=== PATIENT | male | born 1950 | race Caucasian/White ===

== ENCOUNTER → 2017-04-08 | Outpatient (CLI) | payer BC ==
[2014-03-29 15:05] VITALS: BP 111/69
[~2017-04-08] MED LIST: ACET500T33 PO; ALLO300T PO; ASPI325T4 PO; ASPI81TA2 PO; ATOR20TA58 PO; CELE200C PO; DUTA0.5C PO; METF500T4 PO; METO25TA4 PO; MULT-245 PO; NITR0.4T6 SL; OMEG1CAP6 PO; OMEP20CA9 PO; OSTEO BI-FLEX1 EAC1 PO; OXYC-244 PO; SENN1TAB21 PO; TAMS0.4C2 PO; TYLENOL ARTHRITIS; VALS160T3 PO; VALS320T2 PO; VITA1TAB31 PO; WARF-78 PO
== END | disposition home or self-care (01) ==
LOC: LAB 10:35
PROVIDERS: ATTEND Internal Medicine Cardiovascular Disease
DX: E78.5 Hyperlipidemia, unspecified (principal)
CPT/HCPCS: 36415; 80061

== ENCOUNTER → 2017-04-20 | Outpatient (CLI) | payer BC ==
[2014-03-29 15:05] VITALS: BP 111/69
--- NOTE | 2017-04-20 12:04 | KCIC ---
Left Rib series with PA and lateral chest Indication: Left chest pain Comparison: None Findings: There is no displaced rib fracture identified. There is no hemothorax or pneumothorax. Heart size is normal. Pulmonary vasculature is within normal limits. No evidence for consolidating infiltrate. Impression: No evidence for displaced rib fracture, hemothorax, or pneumothorax. Electronically signed by: Trung Christianson MD (04/20/2017 12:01 PM)
== END | disposition home or self-care (01) ==
LOC: KCIC 11:33
PROVIDERS: ATTEND Internal Medicine
DX: R07.89 Other chest pain (principal)
CPT/HCPCS: 71020; 71100

== ENCOUNTER 2017-07-26 14:03 | Observation (INO) | payer MEDICARE ==
[~2017-07-26] VITALS: Ht 172.7 cm; Wt 87.3 kg
[~2017-07-26 14:03] MED LIST changes: +ASPI-630 PO; -ASPI325T4 PO; +ASPI325T8 PO; -ASPI81TA2 PO; +NITR0.4T22 SL; -NITR0.4T6 SL; -OXYC-244 PO; +OXYC-327 PO
[2017-07-26] MEDS ORDERED: DEXTROSE 50% 25 GM / 50ML DISP.SYRIN. IV PRN (15:30)
[2017-07-26] MEDS ORDERED: ACET325T9 PO (16:11)
[2017-07-26] MEDS ORDERED: AMLO5TAB2 PO (16:12)
[2017-07-26] MEDS ORDERED: FINA5TAB4 PO (16:12)
[2017-07-26] MEDS ORDERED: OMEP40CA5 PO (16:13)
[2017-07-26] MEDS ORDERED: GABA600T2 PO (16:15)
[2017-07-26] MEDS ORDERED: CHOL10003 PO (16:15)
[2017-07-26 16:43] LABS: BASO % 0 % (0-3); EOS % 5 % (0-3); HEMATOCRIT 43.1 % (39.0-53.0); HEMOGLOBIN 14.7 g/dL (13.0-17.5); LYMPH # 3.4 x10^3/uL (1.0-4.8); LYMPH % 39 % (24-48); MEAN CORPUSCULAR HEMOGLOBIN 31 pg (25-35); MEAN CORPUSCULAR HGB CONC 34 g/dL (31-37); MEAN CORPUSCULAR VOLUME 89 fL (79-100); MONO % 7 % (0-9); NEUT % 48 % (31-73); PLATELET COUNT 222 x10^3/uL (140-400); RED BLOOD COUNT 4.83 x10^6/uL (4.30-5.70); WHITE BLOOD COUNT 8.7 x10^3/uL (4.0-11.0)
[2017-07-26] MEDS ORDERED: NITROGLYCERIN SUBLINGUAL 0.4 MG BOTTLE OF 25. SL PRN (17:30)
[2017-07-26 17:32] VITALS: BP 144/88
[2017-07-26] MEDS ORDERED: amLODIPine BESYLATE 5 MG TABLET PO SCH (18:00)
[2017-07-26] MEDS ORDERED: TAMSULOSIN 0.4 MG CAP.ER.24H. PO SCH (18:00)
[2017-07-26] MEDS ORDERED: metFORMIN 500 MG TABLET PO SCH (18:00)
[2017-07-26] MEDS ORDERED: CHOLECALCIFEROL (VITAMIN D3) 1,000 UNIT TABLET PO SCH (18:00)
--- NOTE | 2017-07-26 18:00 | EKG ---
[facility] [address] [place] [address] Test Date: 2017-07-26 Test Time: 17:50:44 Pat Name: HARRY MONAE Department: Room: 206 1 Gender: M Incident Analyst: JOSEP : 1950 Requested By: ASHKAN RAHMAN Order Number: [id number] Reading MD: Measurements Intervals [place] Rate: 42 P: 47 UT: 190 QRS: -2 QRSD: 94 T: 95 QT: 444 QTc: 373 Interpretive Statements SINUS BRADYCARDIA LEFTWARD AXIS T ABNORMALITY IN HIGH LATERAL LEADS ABNORMAL ECG RI6.01 Compared to ECG 12/14/2013 15:49:01 Left-axis deviation now present T-wave abnormality now present Sinus tachycardia no longer present
[2017-07-26] MEDS ORDERED: OMEG1CAP6 PO (18:18)
[2017-07-26] MEDS ORDERED: EZET10TA18 PO ×2 (18:20→18:22)
[2017-07-26 18:24] LABS: ALBUMIN 4.1 g/dL (3.4-5.0); ALBUMIN/GLOBULIN RATIO 1.2 (1.0-1.7); CALCIUM 9.4 mg/dL (8.5-10.1); CREATININE 0.9 mg/dL (0.7-1.3); POTASSIUM 3.9 mmol/L (3.5-5.1); TOTAL BILIRUBIN 0.5 mg/dL (0.2-1.0); TOTAL PROTEIN 7.6 g/dL (6.4-8.2)
[2017-07-26] MEDS ORDERED: OMEGA-3 FATTY ACIDS/FISH OIL 1,000 MG CAPSULE. PO SCH (18:30)
[2017-07-26] MEDS ORDERED: EZETIMIBE 10 MG TABLET. PO SCH ×2 (18:30→19:00)
[2017-07-26] MEDS: ASPIRIN CHEWABLE 81 MG TABLET. PO SCH (18:33)
[2017-07-26 18:36] LABS: CKMB MASS 1.5 ng/mL (0.0-3.6)
[2017-07-26 19:30] VITALS: BP 142/88
[2017-07-26] MEDS ORDERED: ACETAMINOPHEN 325 MG TABLET. PO SCH (21:00)
[2017-07-26] MEDS ORDERED: METOPROLOL TART IMMED RELEASE 25 MG TABLET. PO SCH (21:00)
[2017-07-26] MEDS: GABAPENTIN 300 MG CAPSULE. PO SCH (21:52)
[2017-07-26 23:05] VITALS: BP 148/90
[2017-07-27 03:35] VITALS: BP 120/70
[2017-07-27 06:57] LABS: CHOLESTEROL/HDL RATIO 3.3
[2017-07-27] MEDS ORDERED: SENNOSIDES/DOCUSATE 8.6/50MG TABLET. PO SCH ×2 (07:00→08:00)
[2017-07-27] MEDS ORDERED: MULTIVITAMIN with MINERAL TABLET. PO SCH ×2 (07:00→08:00)
[2017-07-27] MEDS ORDERED: ALLOPURINOL 300 MG TABLET. PO SCH ×2 (07:00→08:00)
[2017-07-27] MEDS ORDERED: LOSARTAN POTASSIUM 50 MG TABLET. PO SCH ×2 (07:00→08:00)
[2017-07-27] MEDS ORDERED: [UNRECOGNIZED DRUG - OTHER] PO SCH (07:00)
[2017-07-27 07:15] VITALS: BP 147/82
[2017-07-27] MEDS ORDERED: PANTOPRAZOLE 40 MG TABLET.DR. PO SCH (07:30)
--- NOTE | 2017-07-27 07:59 | RAD ---
Portable chest, 07/26/2017: History: Chest pain Comparison is made to a study from 05/04/2014. There has been a previous median sternotomy. The heart size and pulmonary vascularity are normal. The lungs are clear. There is no evidence of pleural fluid. IMPRESSION: No acute cardiopulmonary abnormality is detected.
[2017-07-27] MEDS ORDERED: metFORMIN 500 MG TABLET PO SCH (08:00)
--- NOTE | 2017-07-27 08:47 | CARD ---
APPROVED REPORT EXAM: Two-dimensional and M-mode echocardiogram with Doppler and color Doppler. Other Information Quality : GoodHR: 45bpm Rhythm : Bradycardia INDICATION Chest Pain 2D DIMENSIONS RVDd3.8 (2.9-3.5cm)Left Atrium(2D)4.5 (1.6-4.0cm) IVSd1.0 (0.7-1.1cm)Aortic Root(2D)3.3 (2.0-3.7cm) LVDd4.9 (3.9-5.9cm)LVOT Diameter2.3 (1.8-2.4cm) PWd1.0 (0.7-1.1cm)LVDs3.3 (2.5-4.0cm) FS (%) 32.4 %SV69.8 ml LVEF(%)60.4 (>50%) Aortic Valve AoV Peak Pardeep.107.9cm/sAoV VTI27.9cm AO Peak GR.4.7mmHgLVOT Peak Pardeep.85.8cm/s AO Mean GR.3mmHgAVA (VMAX)3.22cm2 Mitral Valve MV E Yquapmjj15.5cm/sMV E Peak Gr.4mmHg MV DECEL [id number] A Tnqhhnxi84.3cm/s MV E Mean Gr.1mmHgE/A Ratio1.2 MV A [id number] Pulmonary Valve PV Peak Mwxidocu986.7cm/s Pulmonary Vein S1 Syuwfbqk02.5cm/sD2 Cxwpxnyr62.4cm/s PVa [id number] LEFT VENTRICLE The left ventricle is normal size. There is normal left ventricular wall thickness. The left ventricu lar systolic function is normal. The Ejection Fraction is 55-60%. There is normal LV segmental wall m otion. The left ventricular diastolic function and filling is normal for age. RIGHT VENTRICLE The right ventricle is normal size. There is normal right ventricular wall thickness. The right ventr icular systolic function is normal. ATRIA The left atrium size is normal. The right atrium size is normal. The interatrial septum is intact wit h no evidence for an atrial septal defect or patent foramen ovale as noted on 2-D or Doppler imaging. AORTIC VALVE The aortic valve is mildly thickened. The aortic valve is trileaflet. Doppler and Color Flow revealed no significant aortic regurgitation. There is no significant aortic valvular stenosis. MITRAL VALVE The mitral valve leaflets are mildly thickened. There is no evidence of mitral valve prolapse. There is no mitral valve stenosis. Doppler and Color Flow revealed trace mitral regurgitation. TRICUSPID VALVE Doppler and Color Flow revealed trace tricuspid regurgitation. The pulmonary artery systolic pressure is estimated at 25 mmHg. There is no pulmonary hypertension. PULMONIC VALVE The pulmonic valve is not well visualized but appears to open adequately. Doppler and Color Flow reve aled mild pulmonic valvular regurgitation. There is no pulmonic valvular stenosis by spectral Doppler . GREAT VESSELS The aortic root is normal in size. The ascending aorta is normal in size. The pulmonary artery is nor mal. The IVC is normal in size and collapses >50% with inspiration. PERICARDIAL EFFUSION There is no evidence of significant pericardial effusion. Critical Notification Critical Value: No <Conclusion> The left ventricular systolic function is normal. The Ejection Fraction is 55-60%. There is normal LV segmental wall motion. Trace mitral regurgitation. Trace tricuspid regurgitation. The pulmonary artery systolic pressure is estimated at 25 mmHg. There is no evidence of significant pericardial effusion.
[2017-07-27] MEDS ORDERED: FINASTERIDE 5 MG TABLET. PO SCH (09:00)
[2017-07-27] MEDS ORDERED: ASPIRIN CHEWABLE 81 MG TABLET. PO SCH (09:00)
--- NOTE | 2017-07-27 09:35 | PDOC2 ---
OCTAVIO LAWTON RAIL FILLER 07/27/17 0935: CARDIAC CONSULT DATE OF CONSULT Date of Consult DATE: 07/27/17 TIME: 09:24 REASON FOR CONSULT Reason for Consult: Chest Pain REFERRING PHYSICIAN Referring Physician: Dr. Hensley SOURCE Source: Chart review, Patient HISTORY OF PRESENT ILLNESS HISTORY OF PRESENT ILLNESS This is a 66 yo male who presented as a direct admit from Dr. Hensley's office with complaints of chest pain. Patient reports have reunion on Wednesday and eating foods that "didn't agree with me." Developed "indigestion" Wednesday. Persisted throughout the day and on into Wednesday. Had appointment with PCP Wednesday. Given chest pain and cardiac history, conducted EKG which reportedly had changes from previous study in 2013. Was admitted to the hospital for further workup and treatment. Patient describes the pain as burning in nature. Located in his central chest. Temporarily improved with drinking fluids. No relief with nitro X1. Denies any associated dizziness, diaphoresis, palpitations, SOA, or nausea/vomiting. Pain very different from what he previously experienced in 2013 with IN. Pain no longer present this morning. Does have a history of GERD and has been complaint with omeprazole. Troponin series normal- AMI ruled out. EKG shows SB with mild changes of t-wave inversion of V2 and flattening of V3-5 in comparison to study conducted . Otherwise, no significant acute changes. Echo revealed normal LV function with no WMA. Discussed echo findings, along with suspicion that pain is GI in nature, and potential for discharge home later today with consideration of outpatient ischemic workup if symptoms persisted. Patient would like to proceed with stress test this morning to r/o ischemic etiology. PAST MEDICAL HISTORY Cardiovascular: CAD, HTN, Hyperlipidemia Pulmonary: No pertinent hx GI: GERD Heme/Onc: No pertinent hx Hepatobiliary: No pertinent hx Psych: No pertinent hx Rheumatologic: Gout Infectious disease: No pertinent hx ENT: No pertinent hx Renal/: Benign prostatic enlarg. Endocrine: No pertinent hx Dermatology: No pertinent hx PAST SURGICAL HISTORY Past Surgical History: Appendectomy, CABG (x4 with ARGUETA to LAD, radial to diag. , SVG to OM, and SVG to RCA 11/2013), Other (sinus surgery, carpal tunnel release ) FAMILY HISTORY Family History: Coronary Artery Disease, Kidney Disease SOCIAL HISTORY Smoke: No ALCOHOL: none Drugs: None Lives: with Family CURRENT MEDICATIONS CURRENT MEDICATIONS Current Medications Medications (Trade) Dose Ordered Sig/Parris Route PRN Reason Start Time Stop Time Status Last Admin Dose Admin Acetaminophen (Tylenol) 650 mg BID PO 07/26/17 21:00 07/26/17 21:53 Amlodipine Besylate (Norvasc) 5 mg DAILYWSUP PO 07/26/17 18:00 07/26/17 18:14 Vitamin D (Vitamin D3) 1,000 unit DAILYWSUP PO 07/26/17 18:00 07/26/17 18:15 Metformin HCl (Glucophage) 500 mg BID76 PO 07/26/17 18:00 07/27/17 01:46 DC 07/26/17 18:10 Tamsulosin HCl (Flomax) 0.4 mg DAILYWSUP PO 07/26/17 18:00 07/26/17 18:10 Gabapentin (Neurontin) 600 mg BID PO 07/26/17 21:00 07/26/17 21:52 Fish Oil (Fish Oil) 1,000 mg DAILYWSUP PO 07/26/17 18:30 07/26/17 18:32 EZETIMIBE (Zetia) 10 mg DAILYWSUP PO 07/26/17 18:30 07/26/17 18:33 Aspirin (Children'S Aspirin) 81 mg DAILY PO 07/26/17 18:30 07/26/17 18:33 ALLERGIES ALLERGIES: Coded Allergies: ibuprofen (Verified Allergy, Severe, .ELEVATED BLOOD PRESSURE AND ITCHING , 03/28/14) ROS Review of System 14 point ROS conducted with pertinent positives noted above in HPI. PHYSICAL EXAM General: Alert, Oriented X3, Cooperative, No acute distress HEENT: Atraumatic, Mucous membr. moist/pink Lungs: Clear to auscultation, Normal air movement Heart: Regular rate, Normal S1, Normal S2, No murmurs Abdomen: Soft, No tenderness Extremities: No edema, Normal pulses Skin: No breakdown, No significant lesion Neuro: Normal speech, Sensation intact Psych/Mental Status: Mental status NL, Mood NL MUSCULOSKELETAL: No joint tenderness VITALS VITALS Vital Signs Date Time Temp Pulse Resp B/P (MAP) Pulse Ox O2 Delivery O2 Flow Rate FiO2 07/27/17 07:15 97.8 51 14 147/82 (103) 92 Room Air 97.8 LABS Lab: Laboratory Tests Test 07/26/17 15:35 07/26/17 17:13 07/26/17 17:50 07/26/17 20:55 White Blood Count 8.7 x10^3/uL (4.0-11.0) Red Blood Count 4.83 x10^6/uL (4.30-5.70) Hemoglobin 14.7 g/dL (13.0-17.5) Hematocrit 43.1 % (39.0-53.0) Mean Corpuscular Volume 89 fL (79-100) Mean Corpuscular Hemoglobin 31 pg (25-35) Mean Corpuscular Hemoglobin Concent 34 g/dL (31-37) Red Cell Distribution Width 14.0 % (11.5-14.5) Platelet Count 222 x10^3/uL (140-400) Neutrophils (%) (Auto) 48 % (31-73) Lymphocytes (%) (Auto) 39 % (24-48) Monocytes (%) (Auto) 7 % (0-9) Eosinophils (%) (Auto) 5 % (0-3) Basophils (%) (Auto) 0 % (0-3) Neutrophils # (Auto) 4.2 x10^3uL (1.8-7.7) Lymphocytes # (Auto) 3.4 x10^3/uL (1.0-4.8) Monocytes # (Auto) 0.6 x10^3/uL (0.0-1.1) Eosinophils # (Auto) 0.5 x10^3/uL (0.0-0.7) Basophils # (Auto) 0.0 x10^3/uL (0.0-0.2) Glucose (Fingerstick) 81 mg/dL (70-99) 123 mg/dL (70-99) Sodium Level 140 mmol/L (136-145) Potassium Level 3.9 mmol/L (3.5-5.1) Chloride Level 103 mmol/L (98-107) Carbon Dioxide Level 31 mmol/L (21-32) Anion Gap 6 (6-14) Blood Urea Nitrogen 17 mg/dL (8-26) Creatinine 0.9 mg/dL (0.7-1.3) Estimated GFR (Cockcroft-Gault) 85.0 BUN/Creatinine Ratio 19 (6-20) Glucose Level 88 mg/dL (70-99) Calcium Level 9.4 mg/dL (8.5-10.1) Total Bilirubin 0.5 mg/dL (0.2-1.0) Aspartate Amino Transf (AST/SGOT) 18 U/L (15-37) Alanine Aminotransferase (ALT/SGPT) 31 U/L (16-63) Alkaline Phosphatase 83 U/L (46-116) Creatine Kinase 75 U/L (39-308) Creatine Kinase MB (Mass) 1.5 ng/mL (0.0-3.6) Creatine Kinase MB Relative Index 2.0 % (0-4) Troponin I Quantitative 0.019 ng/mL (0.000-0.055) Total Protein 7.6 g/dL (6.4-8.2) Albumin 4.1 g/dL (3.4-5.0) Albumin/Globulin Ratio 1.2 (1.0-1.7) Test 07/26/17 23:25 07/27/17 05:53 07/27/17 07:43 Troponin I Quantitative < 0.017 ng/mL (0.000-0.055) 0.019 ng/mL (0.000-0.055) Triglycerides Level 115 mg/dL (0-150) Cholesterol Level 146 mg/dL (0-200) LDL Cholesterol, Calculated 79 mg/dL (0-100) VLDL Cholesterol, Calculated 23 mg/dL (0-40) Non-HDL Cholesterol Calculated 102 mg/dL (0-129) HDL Cholesterol 44 mg/dL (40-60) Cholesterol/HDL Ratio 3.3 Glucose (Fingerstick) 113 mg/dL (70-99) ECHOCARDIOGRAM ECHOCARDIOGRAM <Conclusion> The left ventricular systolic function is normal. The Ejection Fraction is 55-60%. There is normal LV segmental wall motion. Trace mitral regurgitation. Trace tricuspid regurgitation. The pulmonary artery systolic pressure is estimated at 25 mmHg. There is no evidence of significant pericardial effusion. DATE: 07/27/17 0847 HEART CATH HEART CATH Conclusion 1. Three-vessel coronary artery disease 2. Normal left ventricular systolic function with ejection fraction estimated at 60%. 3. No mitral regurgitation. No aortic stenosis. Recommendations Coronary artery bypass surgery. DATE: 12/13/13 1214 ASSESSMENT/PLAN ASSESSMENT/PLAN 1. Chest pain; atypical and most probably GI in nature. troponin series normal - AMI ruled out 2. CAD s/p CABG 2013. Clinically stable. Continue secondary prevention measures. 3. Hypertension; controlled with meds 4. Hyperlipidemia; LDL 79. statin therapy 5. GERD; PPI Recommendations Pain likely GI in nature, but given risk factors will proceed with stress test to r/o ischemia. If no evidence of ischemia, may discharge from a CV standpoint and f/u in our office with Dr. Hines in 4-6 weeks. Problems: SHYANN HINES MD 07/27/17 1422: CARDIAC CONSULT ALLERGIES ALLERGIES: Coded Allergies: ibuprofen (Verified Allergy, Severe, .ELEVATED BLOOD PRESSURE AND ITCHING , 03/28/14) ASSESSMENT/PLAN ASSESSMENT/PLAN Patient seen and examined. Agree with PIANO AND ORGAN REFINISHER's assessment and plan Chest pain with atypical features and most probably GI etiology. 2-D echo showed normal LV function and Lexiscan nuclear stress test did not show any significant ischemia. CAD status clinically stable. Continue current medical regimen. Follow-up with our office in 1 month. Problems: OCTAVIO LAWTON APRN Jul 27, 2017 09:35 SHYANN HINES MD Jul 27, 2017 14:22
[2017-07-27] MEDS ORDERED: METOPROLOL TART IMMED RELEASE 25 MG TABLET. PO SCH (10:00)
--- NOTE | 2017-07-27 10:01 | PDOC ---
Provider Note Provider Note history and physical dictated # [id number] ASHKAN RAHMAN MD Jul 27, 2017 10:01
[2017-07-27] MEDS ORDERED: REGADENOSON 0.4 MG/5 ML DISP.SYRIN. IV ONE (10:45)
--- NOTE | 2017-07-27 10:56 | HP ---
ADMIT DATE: 07/27/2017 LOCATION: Room 206. HISTORY OF PRESENT ILLNESS: The patient is a 66-year-old white male with a history of coronary artery disease and coronary artery bypass graft surgery who has gastroesophageal reflux disease, diabetes mellitus type 2, hypertension, hyperlipidemia, obstructive sleep apnea treated with CPAP, who was seen in the office on 07/26/2017 with a 2-day history of retrosternal chest discomfort described as a burning. He had some discomfort in the right upper extremity. He took a sublingual nitroglycerin at home, which did not help and did not take any antacids. He does take omeprazole 40 mg every day. Denied any exertional chest discomfort. He said it did not feel like his angina in the past; however, it was persisting although less intense than it was the day before. EKG in the office showed some T-wave inversion in leads I, aVL, V5 and V6, which was new since comparison to an EKG in 2013. This prompted admission to the hospital. The patient denies any further chest pain since admission. ALLERGIES AND INTOLERANCES: To IBUPROFEN as well as NAPROXEN, HYDROCODONE, LISINOPRIL and FELODIPINE. MEDICATIONS PRIOR TO ADMISSION: Include allopurinol 300 mg every day, amlodipine 5 mg every day, aspirin 81 mg every day, finasteride 5 mg every day, fish oil 1 g daily, gabapentin 600 mg b.i.d., metformin 500 mg b.i.d., metoprolol tartrate 12.5 mg b.i.d., multiple vitamin once a day, nitroglycerin 0.4 mg sublingual p.r.n., omeprazole 40 mg every day, , tramadol 50 mg every 6 hours p.r.n., valsartan 160 mg every day and Zetia 10 mg every day. PAST MEDICAL HISTORY: Significant for diabetes mellitus type 2 with diabetic peripheral neuropathy, microalbuminuria. He also has a history of hyperlipidemia, coronary artery disease with 4-vessel coronary bypass graft surgery. Benign prostatic hypertrophy, obstructive sleep apnea treated with CPAP, gynecomastia in the past and he had a right breast biopsy for that. He has a history of gastroesophageal reflux disease. An upper GI bleed due to esophageal ulcers secondary to nonsteroidal anti-inflammatory drug in 2001 and he has a history of obstructive sleep apnea, treated with CPAP. He has osteoarthritis. He had a right total knee arthroplasty in 2014, left trigger thumb release, sinus surgery, appendectomy, carpal tunnel release and a 4-vessel coronary artery bypass graft surgery in 2014. SOCIAL HISTORY: He does not drink alcohol nor does he smoke cigarettes. He is retired. FAMILY HISTORY: Brother had a myocardial infarction and mother and brother had pancreatic cancer. Mother had diabetes mellitus. REVIEW OF SYSTEMS: GENERAL: There has been no fever, chills or sweats in the last few days. CARDIOVASCULAR: No chest pain. PULMONARY: No cough or shortness of breath. GASTROINTESTINAL: No constipation. SKIN: No rashes. NEUROLOGIC: No focal weakness. ENDOCRINE: He has diabetes mellitus. The rest of systems reviewed are negative except as stated in history of present illness. PHYSICAL EXAMINATION: VITAL SIGNS: Temperature is 97.8 degrees, apical pulse is 52 and regular, respiratory rate is 18, blood pressure 147/82, oxygen saturation 92% on room air. HEENT: Eyes: Gaze is conjugate. Mouth: Tongue is midline. NECK: There is no cervical lymphadenopathy or thyroid enlargement. HEART: Reveals an S1, S2. There is no S3 or murmur. LUNGS: Clear. ABDOMEN: Soft with no hepatosplenomegaly, masses or tenderness. EXTREMITIES: Lower extremities without edema. SKIN: No rashes. He had a red skin. He does have a little red spot on the left anterior calf which he had before, which appears to be small than it was yesterday. NEUROLOGIC: Revealed that it was coherent with no focal weakness in arms or legs. REVIEW OF TEST RESULTS: His white count was 8.7, hemoglobin 14.7, platelet count 222,000, 48 polys and 39 lymphocytes. His sodium is 140, potassium 3.9, chloride 103, total CO2 31, BUN 17, creatinine 0.9, blood sugar 88. Liver function tests normal. Albumin 4.1 and the troponin level was negative x 3. Cholesterol level 146, triglycerides 115, LDL 79, HDL was 44. Chest x-ray showed no acute abnormality. Electrocardiogram, which showed sinus bradycardia, nonspecific ST-T wave changes and Q-waves in leads III and aVF. He had an echocardiogram also done which showed a preserved left ventricular ejection fraction 55% to 60% with normal left ventricular wall motion. He had trace mitral regurgitation, trace tricuspid regurgitation, pulmonary artery systolic pressure was 25. There is no significant pericardial effusion. ASSESSMENT: 1. Chest pain. 2. Coronary artery disease with previous coronary artery bypass graft surgery. 3. Gastroesophageal reflux disease and some sinus bradycardia. 4. Hypertension. 5. Obstructive sleep apnea. 6. Diabetes mellitus type 2. 7. Hyperlipidemia. PLAN: At this time is to consult Cardiology. We will see if they want to proceed with a stress test or not. We will continue with his current medications. We will continue with the aspirin for his coronary artery disease, amlodipine and valsartan, which has been substituted with losartan for his hypertension. Continue the metformin for the diabetes and Zetia for his hyperlipidemia. Continue the allopurinol for his history of gout. We will decrease the metoprolol 12.5 mg everyday and hold if the heart rate is less than 60. ASHKAN RAHMAN MD DR: TOM/nuno JOB#: [id number] / [id number]
[2017-07-27 11:07] VITALS: BP 128/84
[2017-07-27] MEDS ORDERED: ACETAMINOPHEN 325 MG TABLET. PO PRN (12:00)
[2017-07-27] MEDS: GABAPENTIN 300 MG CAPSULE. PO SCH (12:24)
[2017-07-27] MEDS: ASPIRIN CHEWABLE 81 MG TABLET. PO SCH (12:25)
--- NOTE | 2017-07-27 14:10 | RAD ---
APPROVED REPORT Test Type: Pharmacological Stress Nurse/Tech: Mounika Del Cid R.N. Test Indications: Chest pain, indigestion. Cardiac History: CABGx4 2013, HTN Medications: SEE EMR Medical History: SEE EMR Resting ECG: SB Resting Heart Rate: 51 bpm Resting Blood Pressure: 127/76mmHg Pretest Chest Pain: None Nurse/Tech Notes S1S2, lungs CTA, denied chest pain or SOA. Pt states he believes he is having episodes of indigestion . Consent: The procedure was explained to the patient in lay terms. Informed consent was witnessed. Alfonso eout was entered into [employer]. History and Stress Test performed by Mounika Del Cid R.N. Pharm. Details Pharmacologic stress testing was performed using 0.4mg per 5ml of regadenoson given intravenously ove r 7-10 seconds. Stress Symptoms Nausea, SOA. POST EXERCISE Reason for Termination: Infusion complete Max HR: 85 bpm Max Blood Pressure: 132/76mmHg Blood Pressure response to exercise: Normal blood pressure response during stress. Heart Rate response to exercise: Normal Chest Pain: No. Arrhythmia: No. ST Change: No. INTERPRETATION Stress EKG Conclusion: No acute changes were noted. Imaging Protocol IMAGE PROTOCOL: Rest Tc-99m/stress Tc-99m 1 day Rest: Stress: Viability: Radiopharm.Tc99m KxtazzqimRn55n Sestamibi Dose10.5mCi 32mCi Duration 15min. 12min. Img Date 07/27/2017 07/27/2017 Inj-Img Axzp30noh. 60min. Rest Admin Site:IV - Right HandAdministrator:RT Megan (R)(N) Stress Admin Site: IV - Right HandAdministrator: GEORGI Koenig STRESS DATA End Diast. Vol.110.0mlAv. Heart Rate53.0bpm End Syst. Vol.50.0mlCO Index BSA0.0L/min Myocardial Pvvy399.0gEject. Amosuewi64.0% Stress Rates Pk. Fill Rate1.81EDV/secLVtime Pk. Fill 228.43msec Pk. Empty Rate2.60ESV/secLVtime Pk. Npjul076.26msec 11/17 Pk. Fill0.92EDV/sec Stress Scores Regional WT2.00Summed WT9.00 Regional WM0.00Summed WM9.00 The rest and stress images show normal perfusion, normal contraction and thickening. LV Perf. Quant 17 Seg. SSS3.00 17 Seg. SRS0.00 17 Seg. SDS3.00 Stress Defect Extent (% LAD)0.00Rest Defect Extent (% LAD)0.00Rev. Defect Extent (% LAD)0.00 Stress Defect Extent (% LCX) 27.50Rest Defect Extent (% LCX)11.30Rev. Defect Extent (% LCX)12.50 Stress Defect Extent (% RCA)0.00Rest Defect Extent (% RCA)0.00Rev. Defect Extent (% RCA)0.00 Stress Defect Extent (% STEPHANIE)7.40Rest Defect Extent (% STEPHANIE)2.00Rev. Defect Extent (% STEPHANIE)4.80 Other Information Risk Assessment: Low Risk Conclusion 1. No evidence of EKG changes with stress testing. 2. Normal perfusion at stress/rest. 3. Low risk study. 4. EF 55%.
[2017-07-27 15:00] VITALS: BP 125/77
--- NOTE | 2017-07-29 11:25 | PDOC ---
Provider Note Provider Note discharge summary dictated # [id number] ASHKAN RAHMAN MD Jul 29, 2017 11:25
--- NOTE | 2017-07-29 12:08 | DS ---
DATE OF DISCHARGE: 07/27/2017 DATE OF ADMISSION: 07/26/2017 DATE OF DISCHARGE: 07/27/2017 COMMUNITY ENGAGEMENT LEADER: Dr. Zhu. FINAL DIAGNOSES: 1. Chest pain secondary to gastroesophageal reflux disease and suspected esophageal spasm. 2. Coronary artery disease with previous coronary bypass graft surgery. 3. Sinus bradycardia. 4. Gastroesophageal reflux disease. 5. Hypertension. 6. Diabetes mellitus type 2. 7. Hyperlipidemia. 8. Obstructive sleep apnea. HOSPITAL COURSE: The patient is a 66-year-old white male with history of coronary artery disease and previous coronary bypass graft surgery who has gastroesophageal reflux disease, diabetes mellitus type 2, hypertension, hyperlipidemia, obstructive sleep apnea, treated with CPAP. He was seen in the office on 07/26/2017 with a 2-day history of retrosternal chest discomfort described as a burning. He also had some right upper extremity pain. He took a sublingual nitroglycerin at home and did not help. He did not take any antacids. He takes omeprazole every day. He denied any exertional chest discomfort. The patient was admitted to the hospital as he had EKG changes in the office compared to his previous EKG with some T-wave inversion in the lateral precordial leads as well as leads I and aVL. The patient was admitted to the hospital for observation on 07/26/2017 and his cardiac enzymes were negative. EKG showed no further acute changes and he was seen by the cloth handler, Dr. Zhu. The echocardiogram was unremarkable and he passed a stress test. He, therefore, was sent home on the same medications and it was felt that his chest pain was secondary to esophageal spasm and gastroesophageal reflux disease. DISCHARGE MEDICATIONS: He will be dismissed to home on allopurinol 300 mg every day, amlodipine 5 mg every day, aspirin 81 mg every day, finasteride 5 mg every day, fish oil 1 g every day, gabapentin 600 mg b.i.d., metformin 500 mg b.i.d., metoprolol tartrate 12.5 mg b.i.d., multiple vitamin once a day, nitroglycerin 0.4 mg sublingual p.r.n., omeprazole 40 mg in the morning, tramadol 50 mg every 6 hours p.r.n., valsartan 160 mg every day and Zetia 10 mg every day. FOLLOWUP: With Dr. Hensley in the office in a week or so. ASHKAN HENSLEY MD DR: Ghazala JOB#: [id number] / [id number]
== END 2017-07-27 18:00 | disposition home or self-care (01) ==
LOC: 2 NORTH 14:36
PROVIDERS: ADMIT Internal Medicine; ATTEND Internal Medicine
DX: R07.89 Other chest pain (principal); I25.10 Atherosclerotic heart disease of native coronary artery without angina pectoris; K21.9 Gastro-esophageal reflux disease without esophagitis; E78.5 Hyperlipidemia, unspecified; G47.33 Obstructive sleep apnea (adult) (pediatric); E11.42 Type 2 diabetes mellitus with diabetic polyneuropathy; M19.90 Unspecified osteoarthritis, unspecified site; R00.1 Bradycardia, unspecified; I10 Essential (primary) hypertension; K92.2 Gastrointestinal hemorrhage, unspecified; Z95.1 Presence of aortocoronary bypass graft
CPT/HCPCS: 36415; 71010; 78452; 80053; 80061; 82553; 82962; 84484; 85025; 93005; 93017; 93306; A9500; G0378; G0379; J2785; 96374; 96375; 96376

== ENCOUNTER 2017-11-23 11:32 | Emergency (ER) | payer MEDICARE ==
[2017-11-23 12:32] LABS: ADD MAN DIFF? NO
[2017-11-23 12:36] LABS: BASO % 1 % (0-3); EOS # 0.4 x10^3/uL (0.0-0.7); EOS % 6 % (0-3); HEMATOCRIT 41.7 % (39.0-53.0); HEMOGLOBIN 13.6 g/dL (13.0-17.5); LYMPH # 2.9 x10^3/uL (1.0-4.8); LYMPH % 39 % (24-48); MEAN CORPUSCULAR HEMOGLOBIN 29 pg (25-35); MEAN CORPUSCULAR HGB CONC 33 g/dL (31-37); MEAN CORPUSCULAR VOLUME 89 fL (79-100); MONO # 0.8 x10^3/uL (0.0-1.1); MONO % 10 % (0-9); NEUT # 3.4 x10^3uL (1.8-7.7); NEUT % 46 % (31-73); PLATELET COUNT 232 x10^3/uL (140-400); RED BLOOD COUNT 4.66 x10^6/uL (4.30-5.70); RED CELL DISTRIBUTION WIDTH 13.6 % (11.5-14.5); WHITE BLOOD COUNT 7.5 x10^3/uL (4.0-11.0)
[2017-11-23 12:47] LABS: ANION GAP 8 (6-14); BLOOD UREA NITROGEN 20 mg/dL (8-26); BUN/CREATININE RATIO 25 (6-20); CALCIUM 8.9 mg/dL (8.5-10.1); CARBON DIOXIDE 29 mmol/L (21-32); CHLORIDE 105 mmol/L (98-107); CREATININE 0.8 mg/dL (0.7-1.3); GLUCOSE 119 mg/dL (70-99); POTASSIUM 4.2 mmol/L (3.5-5.1); SODIUM 142 mmol/L (136-145)
[2017-11-23 12:52] LABS: ALBUMIN 3.9 g/dL (3.4-5.0); ALBUMIN/GLOBULIN RATIO 1.3 (1.0-1.7); ALK PHOS 85 U/L (46-116); ALT (SGPT) 39 U/L (16-63); AST (SGOT) 21 U/L (15-37); LIPASE 78 U/L (73-393); MAGNESIUM 1.9 mg/dL (1.8-2.4); TOTAL BILIRUBIN 0.4 mg/dL (0.2-1.0)
[2017-11-23 12:53] LABS: TROPONINI < 0.017 ng/mL (0.000-0.055)
[2017-11-23 12:58] LABS: NT-PRO BNP 11 pg/mL (0-124)
[2017-11-23] MEDS: ONDANSETRON PF 4 MG/2 ML VIAL. IV (12:58)
[2017-11-23] MEDS: ASPIRIN 325 MG TABLET PO (12:58)
[2017-11-23] MEDS: NITROGLYCERIN SUBLINGUAL 0.4 MG BOTTLE OF 25. SL (13:00)
[2017-11-23 13:08] LABS: INR 1.1 (0.8-1.1); PROTHROMBIN TIME PATIENT 13.1 SEC (11.7-14.0)
[2017-11-23 13:09] LABS: PARTIAL THROMBOPLASTIN TIME 29 SEC (24-38)
[2017-11-23] MEDS ORDERED: IOHEXOL 300 MG/ML 100ML VIAL. IV (15:45)
[2017-11-23 16:55] LABS: TROPONINI < 0.017 ng/mL (0.000-0.055)
== END 2017-11-23 18:20 | disposition home or self-care (01) ==
LOC: ER 11:32
DX: R07.89 Other chest pain (principal); R10.10 Upper abdominal pain, unspecified; I10 Essential (primary) hypertension; E11.9 Type 2 diabetes mellitus without complications; M10.9 Gout, unspecified; I25.10 Atherosclerotic heart disease of native coronary artery without angina pectoris; Z95.1 Presence of aortocoronary bypass graft; Z90.49 Acquired absence of other specified parts of digestive tract; Z79.82 Long term (current) use of aspirin; Z88.6 Allergy status to analgesic agent
CPT/HCPCS: 36415; 71045; 71275; 76705; 80053; 83690; 83735; 83880; 84484; 85025; 85610; 85730; 93005; 99285-25

== ENCOUNTER → 2017-11-26 | Outpatient (CLI) | payer MEDICARE ==
[~2017-11-26] MED LIST changes: +0.9 % SODIUM CHLORIDE 10 ML DISP.SYRIN. IV; -ACET500T33 PO; -ALLO300T PO; -ASPI-630 PO; -ASPI325T8 PO; -ATOR20TA58 PO; -CELE200C PO; +CONTRAST GIVEN MC; -DUTA0.5C PO; +HEPARIN for IV BOLUS 10,000 UNIT/10 ML VIAL.; +IOHEXOL 300 MG/ML 100ML VIAL.; +LIDOCAINE 2% 20 ML VIAL.; -METF500T4 PO; -METO25TA4 PO; +MIDAZOLAM HCL/PF 2 MG/2 ML VIAL.; -MULT-245 PO; -NITR0.4T22 SL; +NITROGLYCERIN 200 MCG/2 ML SYRINGE FOR CATH/VASC LAB.; +NITROGLYCERIN SUBLINGUAL 0.4 MG BOTTLE OF 25. SL; -OMEG1CAP6 PO; -OMEP20CA9 PO; -OSTEO BI-FLEX1 EAC1 PO; -OXYC-327 PO; -SENN1TAB21 PO; -TAMS0.4C2 PO; -TYLENOL ARTHRITIS; -VALS160T3 PO; -VALS320T2 PO; +VERAPAMIL 5 MG/2 ML VIAL.; -VITA1TAB31 PO; -WARF-78 PO; +fentaNYL PF VIAL 100 MCG/2 ML VIAL
[2017-11-26 07:22] LABS: HEMATOCRIT 46.2 % (39.0-53.0); HEMOGLOBIN 15.1 g/dL (13.0-17.5); MEAN CORPUSCULAR HEMOGLOBIN 30 pg (25-35); MEAN CORPUSCULAR HGB CONC 33 g/dL (31-37); MEAN CORPUSCULAR VOLUME 91 fL (79-100); PLATELET COUNT 242 x10^3/uL (140-400); RED CELL DISTRIBUTION WIDTH 13.6 % (11.5-14.5); WHITE BLOOD COUNT 7.2 x10^3/uL (4.0-11.0)
[2017-11-26 07:31] LABS: INR 1.1 (0.8-1.1); PROTHROMBIN TIME PATIENT 13.1 SEC (11.7-14.0)
[2017-11-26 07:37] LABS: ANION GAP 9 (6-14); BLOOD UREA NITROGEN 18 mg/dL (8-26); CALCIUM 9.4 mg/dL (8.5-10.1); CARBON DIOXIDE 28 mmol/L (21-32); CHLORIDE 104 mmol/L (98-107); CREATININE 0.9 mg/dL (0.7-1.3); GFR 84.7; GLUCOSE 132 mg/dL (70-99); POTASSIUM 3.9 mmol/L (3.5-5.1); SODIUM 141 mmol/L (136-145)
[2017-11-26] MEDS: LIDOCAINE 2% 20 ML VIAL. IJ (08:45)
[2017-11-26] MEDS: MIDAZOLAM HCL/PF 2 MG/2 ML VIAL. IV (08:45)
[2017-11-26] MEDS: fentaNYL PF VIAL 100 MCG/2 ML VIAL IV (08:45)
[2017-11-26] MEDS: IOHEXOL 300 MG/ML 100ML VIAL. IART (08:45)
[2017-11-26] MEDS: IV 1/2 NORMAL SALINE 1,000 ML IV (09:19)
== END | disposition home or self-care (01) ==
LOC: CCL 06:41
DX: I25.10 Atherosclerotic heart disease of native coronary artery without angina pectoris (principal); E78.00 Pure hypercholesterolemia, unspecified; I10 Essential (primary) hypertension; M17.11 Unilateral primary osteoarthritis, right knee; Z86.69 Personal history of other diseases of the nervous system and sense organs; Z87.39 Personal history of other diseases of the musculoskeletal system and connective tissue; Z88.6 Allergy status to analgesic agent; Z98.890 Other specified postprocedural states
CPT/HCPCS: 36415; 80048; 85027; 85610; 93459; 99151; 99153; C1769; C1771; C1892; G0269; J1644; J2250; J3010; Q9967

== ENCOUNTER → 2019-09-26 | Outpatient (CLI) | payer MEDICARE ==
[2017-11-26 11:26] VITALS: BP 121/80
[~2019-09-26] MED LIST changes: -0.9 % SODIUM CHLORIDE 10 ML DISP.SYRIN. IV; +ACET325T9 PO; +ACET500T33 PO; +ALLO300T PO; +AMLO5TAB10 PO; +ASPI-630 PO; +ASPI325T8 PO; +ATOR20TA58 PO; +CELE200C PO; +CHOL10003 PO; -CONTRAST GIVEN MC; +DUTA0.5C PO; +EZET10TA20 PO; +FINA5TAB4 PO; +GABA600T7 PO; -HEPARIN for IV BOLUS 10,000 UNIT/10 ML VIAL.; -IOHEXOL 300 MG/ML 100ML VIAL.; -LIDOCAINE 2% 20 ML VIAL.; +METF500T16 PO; +METO25TA4 PO; -MIDAZOLAM HCL/PF 2 MG/2 ML VIAL.; +MULT-245 PO; +NITR0.4T22 SL; -NITROGLYCERIN 200 MCG/2 ML SYRINGE FOR CATH/VASC LAB.; -NITROGLYCERIN SUBLINGUAL 0.4 MG BOTTLE OF 25. SL; +OMEG1CAP6 PO; +OMEP20CA10 PO; +OMEP40CA45 PO; +OSTEO BI-FLEX1 EAC1 PO; +OXYC1TAB19 PO; +SENN1TAB62 PO; +TAMS0.4C2 PO; +TYLENOL ARTHRITIS; +VALS160T3 PO; +VALS320T2 PO; -VERAPAMIL 5 MG/2 ML VIAL.; +VITA1TAB31 PO; +WARF-78 PO; -fentaNYL PF VIAL 100 MCG/2 ML VIAL
--- NOTE | 2019-09-26 16:31 | KCIC ---
Examination: HIP LEFT 2 VIEW History: Pain Comparison/Correlation: None Findings: Frontal and frog-leg lateral view left hip were obtained. Left hip joint space is unremarkable. No acute fracture or bone destruction. Soft tissues are grossly unremarkable. No definite degenerative findings. Impression: No suspicious process. Electronically signed by: Sergio Ramirez MD (09/26/2019 4:28 PM) [facility]
== END | disposition home or self-care (01) ==
LOC: KCIC 14:30
PROVIDERS: ATTEND Internal Medicine
DX: M25.552 Pain in left hip (principal)
CPT/HCPCS: 73502

== ENCOUNTER → 2019-09-28 | Outpatient (CLI) | payer MEDICARE ==
[2017-11-26 11:26] VITALS: BP 121/80
--- NOTE | 2019-09-28 15:42 | CARD ---
MR#: [id number] Date of Study: 09/28/2019 Ordering Physician: SHYANN HINES, Referring Physician: SHYANN HINES Tech: Radha House RDCS APPROVED REPORT EXAM: Two-dimensional and M-mode echocardiogram with Doppler and color Doppler. Other Information Quality : Good INDICATION Cardiac Disease: CAD Surgery/Intervention CABG: Date: 2011 2D DIMENSIONS RVDd2.9 (2.9-3.5cm)Left Atrium(2D)3.4 (1.6-4.0cm) IVSd1.3 (0.7-1.1cm)Aortic Root(2D)3.3 (2.0-3.7cm) LVDd4.8 (3.9-5.9cm)LVOT Diameter2.1 (1.8-2.4cm) PWd1.0 (0.7-1.1cm)LVDs2.6 (2.5-4.0cm) FS (%) 30.0 %SV83.4 ml LVEF(%)60.0 (>50%) Aortic Valve AoV Peak Pardeep.125.9cm/sAoV VTI22.8cm AO Peak GR.6.3mmHgLVOT Peak Pardeep.86.5cm/s LVOT VTI 18.08cmAO Mean GR.3mmHg PIPER (VMAX)2.22fm1XUF (VTI)2.78cm2 Mitral Valve MV E Nyiwvksn27.2cm/sMV DECEL JAPJ990ns MV A Margpftp73.9cm/sMV PST89la E/A Ratio0.8MVA (PHT)2.69cm2 TDI E/Lateral E'5.6E/Medial E'9.5 Tricuspid Valve TR P. Sggqwqhs773wf/sRAP WMMXCYKQ8rmWg TR Peak Gr.95meThMUET90pvCt Pulmonary Vein S1 Fqziedpe81.3cm/sD2 Qjjsowcq28.7cm/s LEFT VENTRICLE The left ventricle is normal size. There is mild asymmetric septal hypertrophy. The left ventricular systolic function is normal and the ejection fraction is within normal range. The Ejection Fraction i s 55-60%. Septal motion consistent with post-operative state, otherwise grossly normal wall motion. T ransmitral Doppler flow pattern is Grade I-abnormal relaxation pattern. RIGHT VENTRICLE The right ventricle is normal size. The right ventricular systolic function is normal. ATRIA The left atrium size is normal. The right atrium size is normal. The interatrial septum is intact wit h no evidence for an atrial septal defect or patent foramen ovale as noted on 2-D or Doppler imaging. AORTIC VALVE The aortic valve is calcified but opens well. Doppler and Color Flow revealed no significant aortic r egurgitation. There is no significant aortic valvular stenosis. MITRAL VALVE The mitral valve is calcified but opens well. There is no evidence of mitral valve prolapse. There is no mitral valve stenosis. Doppler and Color Flow revealed no mitral valve regurgitation noted. TRICUSPID VALVE The tricuspid valve is normal in structure and function. Doppler and Color Flow revealed trace tricus pid regurgitation. The PA pressure was estimated at 29 mmHg. There is no tricuspid valve stenosis. PULMONIC VALVE The pulmonic valve is not well visualized. Doppler and Color Flow revealed trace to mild pulmonic mirella vular regurgitation. There is no pulmonic valvular stenosis. GREAT VESSELS The aortic root is normal in size. The ascending aorta is normal in size. The IVC is normal in size a nd collapses >50% with inspiration. PERICARDIAL EFFUSION There is no evidence of significant pericardial effusion. Critical Notification Critical Value: No <Conclusion> The left ventricular systolic function is normal and the ejection fraction is within normal range. Th e Ejection Fraction is 55-60%. Septal motion consistent with post-operative state, otherwise grossly normal wall motion. Signed by : Valdo Jalloh, Electronically Approved : 09/28/2019 15:42:12
--- NOTE | 2019-09-28 15:43 | RAD ---
MR#: [id number] Date of Study: 09/28/2019 Ordering Physician: SHYANN HINES, Referring Physician: SHYANN HINES Tech: Letha Galaviz RVT,SILVER APPROVED REPORT Patient Location: OUT-PATIENT Indications Claudication: VELOCITY AND DOPPLER WAVEFORM ANALYSIS RIGHT cm/secWaveformSeverity LEFT cm/secWaveform Severity pCFA 148.3TriphasicpCFA 112.5Triphasic Prof Fem Art. 71.6BiphasicProf Fem Art. 64.3Biphasic Fem Art Prox. 87.5TriphasicFem Art Prox. 100.9Triphasic Fem Art Mid. 102.5TriphasicFem Art Mid. 103.3Triphasic Fem Art Dist. 68.6TriphasicFem Art Dist. 74.5Triphasic Pop Art(Fossa) 61.7TriphasicPop Art(AK) 60.7Triphasic ICE SKATER Prox. 80.3TriphasicPTA Prox. 92.5Triphasic ICE SKATER Dist. 87.4TriphasicPTA Dist. 99.1Triphasic Per Art Dist.64.2TriphasicPer Art Dist.51.4Triphasic RAZIA Dist. 85.5TriphasicATA Dist. 64.2Triphasic DPA 124TriphasicDPA 112Triphasic Findings Grayscale images of the bilateral lower extremity arterial vessels reveal mild intimal hyperplasia an d mild diffuse calcific plaque. No high-grade focal stenosis is identified on grayscale images Spectral waveforms and color Doppler are mostly biphasic and triphasic throughout the lower extremity arterial course with three-vessel runoff below the knee. Critical Notification Critical Value: No <Conclusion> No significant lower extremity arterial disease. Signed by : Valdo Jalloh, Electronically Approved : 09/28/2019 15:43:09
== END | disposition home or self-care (01) ==
LOC: ECHO 14:06
PROVIDERS: ATTEND Internal Medicine Cardiovascular Disease
DX: I08.8 Other rheumatic multiple valve diseases (principal); I70.293 Other atherosclerosis of native arteries of extremities, bilateral legs; I11.9 Hypertensive heart disease without heart failure; I77.3 Arterial fibromuscular dysplasia; I25.10 Atherosclerotic heart disease of native coronary artery without angina pectoris
CPT/HCPCS: 93306; 93923

== ENCOUNTER → 2019-12-13 | Outpatient (CLI) | payer MEDICARE ==
[2017-11-26 11:26] VITALS: BP 121/80
[~2019-12-13] MED LIST changes: -OMEP20CA10 PO; +OMEP20CA16 PO
--- NOTE | 2019-12-13 16:47 | KCIC ---
EXAM: LEFT HAND 3 VIEWS. HISTORY: Pain at the base of the first metacarpal. COMPARISON: None. FINDINGS: No fractures are identified. First carpometacarpal osteoarthritis is moderate to severe. Distal interphalangeal osteoarthritis is mild diffusely. Alignment is maintained. A surgical clip projects along the radial aspect of the distal radial metaphysis. IMPRESSION: 1. Moderate to severe first carpometacarpal osteoarthritis. Electronically signed by: Ricky Rice MD (12/13/2019 4:44 PM) [facility]
== END | disposition home or self-care (01) ==
LOC: KCIC 13:20
PROVIDERS: ATTEND Internal Medicine
DX: M18.12 Unilateral primary osteoarthritis of first carpometacarpal joint, left hand (principal)
CPT/HCPCS: 73130

== ENCOUNTER → 2019-12-27 | Outpatient (CLI) | payer MEDICARE ==
[2017-11-26 11:26] VITALS: BP 121/80
[~2019-12-27] MED LIST changes: +REGADENOSON 0.4 MG/5 ML DISP.SYRIN. IV ONE
--- NOTE | 2019-12-27 13:21 | RAD ---
MR#: [id number] Date of Study: 12/27/2019 Ordering Physician: SHYANN HINES, Referring Physician: STEPHANIA GONZALES Tech: GEORGI Koenig APPROVED REPORT Test Type: Pharmacological Stress Nurse/Tech: Simon Stauffer RN Test Indications: Dyspnea on exertion Cardiac History: COPD, CABG, HTN, DM Medications: See Electronic Medical Record Medical History: See Electronic Medical Record Resting ECG: SR Resting Heart Rate: 51 bpm Resting Blood Pressure: 136/81mmHg Pretest Chest Pain: None Nurse/Tech Notes Lungs CTA, S1S2 Consent: The procedure was explained to the patient in lay terms. Informed consent was witnessed. Alfonso eout was entered into [employer]. History and Stress Test performed by MARGARITO Cardenas, VERA (R) (N) Pharm. Details Pharmacologic stress testing was performed using 0.4mg per 5ml of regadenoson given intravenously ove r 7-10 seconds. Stress Symptoms No chest pain or symptoms. POST EXERCISE Reason for Termination: Infusion complete Max HR: 89 bpm Max Blood Pressure: 153/83mmHg Blood Pressure response to exercise: Normal blood pressure response during stress. Heart Rate response to exercise: normal response Chest Pain: No. Arrhythmia: No. ST Change: No. INTERPRETATION Stress EKG Conclusion: Baseline EKG showed sinus rhythm. No ischemic changes at peak stress. No arr hythmias. Imaging Protocol IMAGE PROTOCOL: Rest Tc-99m/stress Tc-99m 1 day Rest: Stress: Viability: Radiopharm.Tc99m BlcydbvgeNq14h Sestamibi Aeco47kOj 33mCi Duration 15min. 13min. Img Date 12/27/2019 12/27/2019 Inj-Img Gijf91ocv. 60min. Rest Admin Site:IV - Right AntecubitalAdministrator:GEORGI Koenig Stress Admin Site: IV - Right AntecubitalAdministrator: MARGARITO Cardenas, ARRT (R)(N) STRESS DATA End Diast. Vol.132.0mlLVEDV index BSA63.0ml End Syst. Vol.54.0mlLVESV index BSA25.0ml Myocardial Fwpv666.0gEject. Toiuytkf00.0% Stress Scores Regional WT0.00Summed WT0.00 Regional WM0.00Summed WM6.00 Study quality was good. Left Ventricular size was Normal at Rest and Stress. Lung uptake was . Left Ventricular ejection fraction is 59%. The rest and stress images show normal perfusion, normal contraction and thickening. LV Perf. Quant 17 Seg. SSS4.00 17 Seg. SRS6.00 17 Seg. SDS0.00 Stress Defect Extent (% LAD)0.00Rest Defect Extent (% LAD)0.00Rev. Defect Extent (% LAD)0.00 Stress Defect Extent (% LCX) 28.80Rest Defect Extent (% LCX)23.80Rev. Defect Extent (% LCX)0.00 Stress Defect Extent (% RCA)0.00Rest Defect Extent (% RCA)16.70Rev. Defect Extent (% RCA)0.00 Stress Defect Extent (% STEPHANIE)6.70Rest Defect Extent (% STEPHANIE)11.10Rev. Defect Extent (% STEPHANIE)0.00 Conclusion 1. Regadenoson cardioisotope stress test did not show any evidence of ischemia or infarct. 2. Normal left ventricular systolic function with ejection fraction calculated at 59%. 3. Low risk for cardiac events. Signed by : Shyann Hines, Electronically Approved : 12/27/2019 12:36:46
== END | disposition home or self-care (01) ==
LOC: NM 08:49
PROVIDERS: ATTEND Internal Medicine Cardiovascular Disease
DX: I25.10 Atherosclerotic heart disease of native coronary artery without angina pectoris (principal); J44.9 Chronic obstructive pulmonary disease, unspecified; I10 Essential (primary) hypertension; E11.9 Type 2 diabetes mellitus without complications; Z95.1 Presence of aortocoronary bypass graft
CPT/HCPCS: 78452; 93017; A9500; J2785

== ENCOUNTER → 2021-01-21 | Outpatient (CLI) | payer MEDICARE ==
[2017-11-26 11:26] VITALS: BP 121/80
[~2021-01-21] MED LIST changes: +AMLO-186 PO; -AMLO5TAB10 PO; -REGADENOSON 0.4 MG/5 ML DISP.SYRIN. IV ONE; -WARF-78 PO; +WARF5TAB2 PO
--- NOTE | 2021-01-21 17:55 | CARD ---
MR#: [id number] Date of Study: 01/21/2021 Ordering Physician: SHYANN HINES, Referring Physician: SHYANN HINES Tech: Glenda Viera [facility] APPROVED REPORT EXAM: Two-dimensional and M-mode echocardiogram with Doppler and color Doppler. Other Information Quality : AverageHR: 49bpm Rhythm : NSR INDICATION Dyspnea CAD Surgery/Intervention CABG: RISK FACTORS Hypertension Obesity Hyperlipidemia 2D DIMENSIONS Left Atrium(2D)4.5 (1.6-4.0cm)IVSd1.0 (0.7-1.1cm) Aortic Root(2D)3.5 (2.0-3.7cm)LVDd5.3 (3.9-5.9cm) LVOT Diameter2.1 (1.8-2.4cm)PWd0.9 (0.7-1.1cm) LVDs3.6 (2.5-4.0cm)FS (%) 31.2 % SV79.2 mlLVEF(%)58.5 (>50%) Aortic Valve AoV Peak Pardeep.126.5cm/sAoV VTI26.9cm AO Peak GR.6.4mmHgLVOT Peak Pardeep.91.0cm/s AO Mean GR.3mmHgAVA (VMAX)2.42cm2 Mitral Valve MV E Ikbbftzp750.0cm/sMV DECEL LPHF139ix MV A Gwamwyzt64.4cm/sE/A Ratio1.3 Pulmonary Valve PV Peak Hvfvnbzy535.7cm/s Pulmonary Vein S1 Nfiflxld27.7cm/sD2 Eouinisi03.2cm/s PVa zmmvcrok480rzql LEFT VENTRICLE The left ventricle is normal size. There is normal left ventricular wall thickness. The left ventricu lar systolic function is normal and the ejection fraction is within normal range. Estimated ejection fraction 50-55% There is normal LV segmental wall motion. The left ventricular diastolic function an d filling is normal for age. RIGHT VENTRICLE The right ventricle is normal size. There is normal right ventricular wall thickness. The right ventr icular systolic function is normal. ATRIA The left atrium size is normal. The right atrium is borderline dilated. The interatrial septum is int act with no evidence for an atrial septal defect or patent foramen ovale as noted on 2-D or Doppler i maging. AORTIC VALVE The aortic valve is normal in structure and function. Doppler and Color Flow revealed no significant aortic regurgitation. There is no significant aortic valvular stenosis. MITRAL VALVE The mitral valve is normal in structure and function. There is no evidence of mitral valve prolapse. There is no mitral valve stenosis. Doppler and Color-flow revealed trace mitral regurgitation. TRICUSPID VALVE The tricuspid valve is normal in structure and function. Doppler and Color Flow revealed no tricuspid valve regurgitation noted. There is no tricuspid valve stenosis. PULMONIC VALVE The pulmonary valve is normal in structure and function. Doppler and Color Flow revealed mild pulmoni c valvular regurgitation. GREAT VESSELS The aortic root is borderline normal in size. The ascending aorta is normal in size. Due to poor imag e quality, the IVC could not be assessed. PERICARDIAL EFFUSION There is no evidence of significant pericardial effusion. Critical Notification Critical Value: No <Conclusion> The left ventricle is normal size. The left ventricular systolic function is normal and the ejection fraction is within normal range. Estimated ejection fraction 50-55% Doppler and Color Flow revealed no significant aortic regurgitation. There is no significant aortic valvular stenosis. Doppler and Color-flow revealed trace mitral regurgitation. Doppler and Color Flow revealed no tricuspid valve regurgitation noted. Signed by : Dawit Londono MD Electronically Approved : 01/21/2021 17:54:50
== END ==
LOC: ECHO 07:32
PROVIDERS: ATTEND Internal Medicine Cardiovascular Disease
DX: I37.1 Nonrheumatic pulmonary valve insufficiency (principal); I25.10 Atherosclerotic heart disease of native coronary artery without angina pectoris
CPT/HCPCS: 93306

== ENCOUNTER → 2021-08-20 | Outpatient (CLI) | payer MEDICARE ==
[2017-11-26 11:26] VITALS: BP 121/80
[~2021-08-20] MED LIST changes: +CYCL5TAB PO; -OMEP40CA45 PO; +OMEP40CA7 PO; +REGADENOSON 0.4 MG/5 ML DISP.SYRIN. IV ONE
--- NOTE | 2021-08-21 11:17 | RAD ---
MR#: [id number] Date of Study: 08/20/2021 Ordering Physician: SHYANN HINES, Referring Physician: STEPHANIA GONZALES Tech: MARGARITO Cardenas, ARRT (R) (N) APPROVED REPORT Test Type: Pharmacological Stress Nurse/Tech: Simon Stauffer RN Test Indications: chest pain, CAD Cardiac History: HTN, CABG 2011, DM Medications: See Electronic Medical Record Medical History: See Electronic Medical Record Resting ECG: SB Resting Heart Rate: 49 bpm Resting Blood Pressure: 162/82mmHg Pretest Chest Pain: None Nurse/Tech Notes Lungs CTA, S1S2 Consent: The procedure was explained to the patient in lay terms. Informed consent was witnessed. Alfonso eout was entered into [employer]. History and Stress Test performed by RT Megan (R) (N) Pharm. Details Pharmacologic stress testing was performed using 0.4mg per 5ml of regadenoson given intravenously ove r 7-10 seconds. Stress Symptoms No chest pain or symptoms. POST EXERCISE Reason for Termination: Infusion complete Max HR: 85 bpm Max Blood Pressure: 165/97mmHg Blood Pressure response to exercise: Normal blood pressure response during stress. Heart Rate response to exercise: normal response Chest Pain: No. Arrhythmia: No. ST Change: No. INTERPRETATION Stress EKG Conclusion: No evidence of stress induced EKG changes. Imaging Protocol IMAGE PROTOCOL: Rest Tc-99m/stress Tc-99m 1 day Rest: Stress: Viability: Radiopharm.Tc99m NdikotrlqYm06z Sestamibi Dose10.5mCi 32.4mCi Img Date 08/20/2021 08/20/2021 STRESS DATA End Diast. Vol.130.0mlAv. Heart Rate53.0bpm End Syst. Vol.47.0mlCO Index BSA0.0L/min Myocardial Cmcn861.0gEject. Eehznddy39.0% Stress Rates Pk. Fill Rate2.49EDV/secLVtime Pk. Fill 258.31msec Pk. Empty Rate3.43ESV/secLVtime Pk. Afsmq403.43msec 1/3 Pk. Fill1.06EDV/sec Stress Scores Regional WT0.00Summed WT0.00 Regional WM0.00Summed WM0.00 The rest and stress images show normal perfusion, normal contraction and thickening. LV Perf. Quant 17 Seg. SSS2.00 17 Seg. SRS7.50 17 Seg. SDS0.00 Stress Defect Extent (% LAD)0.00Rest Defect Extent (% LAD)0.00Rev. Defect Extent (% LAD)0.00 Stress Defect Extent (% LCX) 21.30Rest Defect Extent (% LCX)46.90Rev. Defect Extent (% LCX)0.00 Stress Defect Extent (% RCA)0.00Rest Defect Extent (% RCA)0.00Rev. Defect Extent (% RCA)0.00 Stress Defect Extent (% STEPHANIE)4.10Rest Defect Extent (% STEPHANIE)10.20Rev. Defect Extent (% STEPHANIE)0.00 Other Information Quality:Average Risk Assessment: Low Risk Conclusion 1. No evidence of EKG changes with stress testing. 2. Normal perfusion at stress/rest. 3. Low risk study. 4. EF > 60%. Signed by : Valdo Jalloh, Electronically Approved : 08/21/2021 11:16:52
== END ==
LOC: NM 09:29
PROVIDERS: ATTEND Internal Medicine Cardiovascular Disease
DX: I25.810 Atherosclerosis of coronary artery bypass graft(s) without angina pectoris (principal); I10 Essential (primary) hypertension; E11.9 Type 2 diabetes mellitus without complications; Z95.1 Presence of aortocoronary bypass graft
CPT/HCPCS: 78452; 93017; A9500; J2785

== ENCOUNTER → 2022-01-05 | Outpatient (CLI) | payer MEDICARE ==
[2017-11-26 11:26] VITALS: BP 121/80
[~2022-01-05] MED LIST changes: -REGADENOSON 0.4 MG/5 ML DISP.SYRIN. IV ONE
--- NOTE | 2022-01-05 11:23 | KCIC ---
MR CERVICAL SPINE WO History:Reason: RIGHT CERVICAL RADICULITIS / Spl. Instructions: / History: Acute RUE pain x 3 weeks. NKI. Pain behind rt scapula. Technique: Multiplanar, multi sequential noncontrast MR imaging was performed of the cervical spine. Comparison: None Findings: Several sequences are motion degraded. Grade 1 anterolisthesis C4 on C5. Normal vertebral body height. No acute fracture. No pathologic signal abnormality within the cervical spinal cord. C2-C3: Minimal disc bulge. No canal or neuroforaminal narrowing. C3-C4: Small disc bulge. No canal narrowing. Uncovertebral facet arthropathy. Mild bilateral neurofo raminal narrowing. C4-C5: Anterolisthesis. Small disc bulge. Minimal canal narrowing. Mild cord flattening. Uncovertebr al and facet arthropathy. Moderate right and mild left neuroforaminal narrowing. C5-C6: Small posterior disc osteophyte complex. Mild canal narrowing. Mild cord flattening. Uncovert ebral and facet arthropathy. Moderate bilateral neuroforaminal narrowing. C6-C7: Posterior disc osteophyte complex. Potential right foraminal disc protrusion/extrusion altho ugh not well characters due to patient motion. Mild canal narrowing. Mild cord flattening. Uncoverteb ral and facet arthropathy. Moderate bilateral neuroforaminal narrowing. C7-T1: No canal or neuroforaminal narrowing. Mild facet arthropathy. Impression: 1. Multilevel cervical spondylosis most prominent C5-C6 and C6-C7. 2. Mild canal narrowing C5-C6 and C6-C7. 3. Moderate multilevel neuroforaminal narrowing. 4. Grade 1 anterolisthesis C4 on C5. Electronically signed by: Tony Biggs DO (01/05/2022 11:20 AM) [facility]
== END ==
LOC: KCIC MRI 09:34
PROVIDERS: ATTEND Physical Medicine & Rehabilitation
DX: M47.22 Other spondylosis with radiculopathy, cervical region (principal); M48.02 Spinal stenosis, cervical region; M43.12 Spondylolisthesis, cervical region; M50.31 Other cervical disc degeneration, high cervical region
CPT/HCPCS: 72141

== ENCOUNTER → 2022-02-25 | Outpatient (CLI) | payer MEDICARE ==
[2017-11-26 11:26] VITALS: BP 121/80
[2022-02-25 10:34] LABS: CHOLESTEROL/HDL RATIO 3.9
--- NOTE | 2022-02-25 14:51 | CARD ---
MR#: [id number] Date of Study: 02/25/2022 Ordering Physician: SHYANN HINES, Referring Physician: SHYANN HINES Tech: Glenda Viera [facility] APPROVED REPORT EXAM: Two-dimensional and M-mode echocardiogram with Doppler and color Doppler. Other Information Quality : AverageHR: 48bpm Rhythm : Bradycardia INDICATION Cardiac Disease: CAD RISK FACTORS Hypertension Obesity Hyperlipidemia Diabetes 2D DIMENSIONS RVDd3.8 (2.9-3.5cm)Left Atrium(2D)4.6 (1.6-4.0cm) IVSd1.3 (0.7-1.1cm)Aortic Root(2D)3.6 (2.0-3.7cm) LVDd5.0 (3.9-5.9cm)LVOT Diameter2.4 (1.8-2.4cm) PWd1.4 (0.7-1.1cm)LVDs3.8 (2.5-4.0cm) FS (%) 24.9 %SV58.9 ml LVEF(%)49.0 (>50%) Aortic Valve AoV Peak Pardeep.111.2cm/sAoV VTI27.5cm AO Peak GR.4.9mmHgLVOT Peak Pardeep.78.6cm/s AO Mean GR.2mmHgAVA (VMAX)3.23cm2 Mitral Valve MV E Rpmmnhqr38.2cm/sMV DECEL JTWD103ri MV A Hbvlyzbg64.2cm/sE/A Ratio1.2 Pulmonary Valve PV Peak Odfgkrnh411.1cm/s Tricuspid Valve TR P. Jtqmyelf737pg/sTR Peak Gr.25mmHg LEFT VENTRICLE The left ventricle is normal size. There is mild concentric left ventricular hypertrophy. The left ve ntricular systolic function is normal and the ejection fraction is within normal range. Estimated eje ction fraction 55%. There is normal LV segmental wall motion. The left ventricular diastolic function and filling is normal for age. RIGHT VENTRICLE The right ventricle is normal size. There is normal right ventricular wall thickness. The right ventr icular systolic function is normal. ATRIA The left atrium size is normal. The right atrium size is normal. The interatrial septum is intact wit h no evidence for an atrial septal defect or patent foramen ovale as noted on 2-D or Doppler imaging. AORTIC VALVE The aortic valve is normal in structure and function. Doppler and Color Flow revealed no significant aortic regurgitation. There is no significant aortic valvular stenosis. MITRAL VALVE The mitral valve is normal in structure and function. There is no evidence of mitral valve prolapse. There is no mitral valve stenosis. Doppler and Color-flow revealed mild mitral regurgitation. TRICUSPID VALVE The tricuspid valve is normal in structure and function. Doppler and Color Flow revealed trace to mil d tricuspid regurgitation. Estimated PAP 30 mmHg. There is no tricuspid valve stenosis. PULMONIC VALVE Doppler and Color Flow revealed mild pulmonic valvular regurgitation. There is no pulmonic valvular s tenosis. GREAT VESSELS The aortic root is normal in size. The ascending aorta is normal in size. The IVC is normal in size a nd collapses >50% with inspiration. PERICARDIAL EFFUSION There is no evidence of significant pericardial effusion. Critical Notification Critical Value: No <Conclusion> The left ventricular systolic function is normal and the ejection fraction is within normal range. E stimated ejection fraction 55%. There is normal LV segmental wall motion. Signed by : Valdo Jalloh, Electronically Approved : 02/25/2022 14:50:55
== END ==
LOC: ECHO 07:57
PROVIDERS: ATTEND Internal Medicine Cardiovascular Disease
DX: I08.8 Other rheumatic multiple valve diseases (principal); I25.10 Atherosclerotic heart disease of native coronary artery without angina pectoris; E78.5 Hyperlipidemia, unspecified
CPT/HCPCS: 36415; 80061; 93306; C8929